=== PATIENT | male | born 1945 | race Caucasian/White ===

== ENCOUNTER → 2023-08-04 09:40 | Outpatient (REF) | payer OTHER, SELFPAY | LOC: DHCBS MAIN 09:40 | PROVIDERS: ATTENDING PHYSICIAN Nuclear Medicine Nuclear Cardiology; FAMILY PHYSICIAN Internal Medicine Geriatric Medicine | DX: I10 Essential (primary) hypertension (principal); I49.3 Ventricular premature depolarization; I47.20 Ventricular tachycardia, unspecified | CPT/HCPCS: 93306 ==

== ENCOUNTER → 2024-02-24 15:25 | Outpatient (REF) | payer OTHER, SELFPAY | LOC: RAD 15:25 | PROVIDERS: ATTENDING PHYSICIAN Nurse Practitioner Family; FAMILY PHYSICIAN Internal Medicine Geriatric Medicine | DX: R60.0 Localized edema (principal); Z86.72 Personal history of thrombophlebitis; M79.605 Pain in left leg | CPT/HCPCS: 93971 ==

== ENCOUNTER → 2024-05-23 06:32 | Outpatient (REF) | payer OTHER, SELFPAY | LOC: RAD 06:32 | PROVIDERS: ATTENDING PHYSICIAN Nurse Practitioner Family; FAMILY PHYSICIAN Internal Medicine Geriatric Medicine | DX: R60.0 Localized edema (principal) | CPT/HCPCS: 93922; 93925; 93970 ==

== ENCOUNTER → 2024-10-03 10:02 | Outpatient (REF) | payer OTHER, SELFPAY | LOC: RCS 10:02 | PROVIDERS: ATTENDING PHYSICIAN Nuclear Medicine Nuclear Cardiology; FAMILY PHYSICIAN Internal Medicine Geriatric Medicine | DX: I47.29 Other ventricular tachycardia (principal) | CPT/HCPCS: 93306 ==

== ENCOUNTER → 2025-01-11 10:27 | Outpatient (REF) | payer OTHER, SELFPAY | LOC: HWRAD 10:27 | PROVIDERS: ATTENDING PHYSICIAN Nurse Practitioner Family | DX: M25.571 Pain in right ankle and joints of right foot (principal); R09.89 Other specified symptoms and signs involving the circulatory and respiratory systems | CPT/HCPCS: 71046; 73600 ==

== ENCOUNTER → 2025-06-06 10:09 | Outpatient (REF) | payer OTHER, SELFPAY | LOC: HWRCS 10:09 | PROVIDERS: ATTENDING PHYSICIAN Nuclear Medicine Nuclear Cardiology; FAMILY PHYSICIAN Internal Medicine Geriatric Medicine | DX: I48.0 Paroxysmal atrial fibrillation (principal); I47.29 Other ventricular tachycardia; I50.32 Chronic diastolic (congestive) heart failure | CPT/HCPCS: 93306 ==